=== PATIENT | female | born 1980 | race African-American/Black ===

== ENCOUNTER 2016-10-05 17:51 | Emergency (ER) | payer OTHER ==
[2016-10-05 18:16] VITALS: BP 115/65; PULSE 86; RESP 18; TEMP 96.9
--- NOTE | 2016-10-05 18:41 | ED ---
Lower Extremity Injury HPI - General Chief Complaint: Extremity Injury, Lower Stated Complaint: POSS BROKEN LITTLE TOE ON RT FOOT Time Seen by Provider: 10/05/16 18:20 Source: patient, RN notes reviewed Mode of arrival: wheelchair Limitations: no limitations - History of Present Illness Initial Comments: Patient is a 36-year-old female chief complaint of the injury of her fifth toe on her right foot. Patient reports that she was trying to get into the car and hit her foot on the edge of the cart. Patient reports that she's had swelling and pain over the fifth digit. She denies any peripheral paresthesias or pain with the great toe or other toes. Patient reports that she's having difficulty walking on it.Patient denies any recent fever, chills, shortness of breath, chest pain, back pain, abdominal pain, nausea vomiting, numbness or tingling, dysuria or hematuria, constipation or diarrhea, headaches or visual changes, or any other current symptoms - Related Data Previous Rx's Medication Instructions Recorded Ibuprofen [Motrin] 800 mg PO Q6HR PRN #20 tab 10/05/16 Allergies Allergy/AdvReac Type Severity Reaction Status Date / Time Penicillins Allergy Rash/Hives Verified 10/05/16 18:16 Review of Systems ROS Statement: Those systems with pertinent positive or pertinent negative responses have been documented in the HPI. ROS Other: All systems not noted in ROS Statement are negative. Past Medical History Past Medical History: No Reported History History of Any Multi-Drug Resistant Organisms: None Reported Past Surgical History: Tubal Ligation Additional Past Surgical History / Comment(s): D&C Past Psychological History: No Psychological Hx Reported Smoking Status: Current every day smoker Past Alcohol Use History: Rare Past Drug Use History: None Reported General Exam - General Exam Comments Initial Comments: Pleasant 36-year-old female. No distress. Limitations: no limitations General appearance: alert, in no apparent distress Head exam: Present: atraumatic, normocephalic, normal inspection Eye exam: Present: normal appearance, PERRL, EOMI. Absent: scleral icterus, conjunctival injection, periorbital swelling ENT exam: Present: normal exam, normal oropharynx, mucous membranes moist, TM's normal bilaterally Neck exam: Present: normal inspection. Absent: tenderness, meningismus, lymphadenopathy Respiratory exam: Present: normal lung sounds bilaterally. Absent: respiratory distress, wheezes, rales, rhonchi, stridor Cardiovascular Exam: Present: regular rate GI/Abdominal exam: Present: soft, normal bowel sounds. Absent: distended, tenderness, guarding, rebound, rigid Extremities exam: Present: normal inspection, full ROM, normal capillary refill. Absent: tenderness, pedal edema, joint swelling, calf tenderness Right Foot/Toe exam: Present: normal inspection, full ROM, tenderness (Tenderness and swelling over the fifth toe.), swelling (Mild swelling over the fifth distal middle metatarsal and digit.). Absent: abrasion Neurovascular tendon exam: Present: no vascular compromise Gait: observed and normal Back exam: Present: normal inspection Neurological exam: Present: alert, oriented X3, CN II-XII intact Psychiatric exam: Present: normal affect, normal mood Skin exam: Present: warm, dry, intact, normal color. Absent: rash Course Vital Signs 10/05/16 18:13 Temperature 96.9 F L Pulse Rate 86 Respiratory 18 Rate Blood Pressure 115/65 O2 Sat by Pulse 100 Oximetry Medical Decision Making - Medical Decision Making Patient is 36-year-old [employer] chief complaint of right fifth toe pain after hitting her foot on the car she was entering it. Patient reports that the pain was severe. X-rays are reviewed and show evidence of an acute fracture of the distal fifth phalanx. Patient was alexandrea taped and given a prescription for crutches. I also discussed with the patient follow-up with orthopedic or primary care provider if symptoms continue to persist. I did instruct her to monitor any worsening symptoms and to be reevaluated by her primary care provider. Also instructed her to take Motrin Tylenol for pain as well as ice the foot and keep it elevated. Patient agrees treatment plan will comply. Return parameters were discussed. Disposition Clinical Impression: Fracture of fifth toe, right, closed Disposition: HOME SELF-CARE Condition: Good Instructions: Toe Fracture (ED) Additional Instructions: Patient advised to rest, elevate extremity, and ice the toe is much as possible. use crutches whenever you are ambulating. Follow-up with primary care provider or orthopedic physician of symptoms continue to persist. Prescriptions: Ibuprofen [Motrin] 800 mg PO Q6HR PRN #20 tab PRN Reason: Pain Referrals: Andres Vázquez MD [Primary Care Provider] - 1-2 days Rock Hamilton DO [Doctor of Osteopathic Medicine] - 1-2 days Time of Disposition: 18:49
--- NOTE | 2016-10-05 18:54 | XR ---
EXAMINATION TYPE: XR toes RT DATE OF EXAM: 10/05/2016 6:46 PM COMPARISON: NONE HISTORY: Pain TECHNIQUE: 3 views FINDINGS: There is a nondisplaced fracture midshaft of the proximal phalanx of the little toe. There is no dislocation. IMPRESSION: Nondisplaced little toe fracture.
== END 2016-10-05 19:10 | disposition home or self-care (01) ==
LOC: EC 17:51
DX: S92.531A Displaced fracture of distal phalanx of right lesser toe(s), initial encounter for closed fracture (principal); F17.200 Nicotine dependence, unspecified, uncomplicated; Z88.0 Allergy status to penicillin; W22.8XXA Striking against or struck by other objects, initial encounter
CPT/HCPCS: 99283

== ENCOUNTER 2019-06-05 16:26 | Emergency (ER) | payer OTHER ==
[2019-06-05 17:14] VITALS: BP 149/89; PULSE 107; RESP 20
[2019-06-05] MEDS ORDERED: ACETAMINOPHEN TAB 325 MG TAB PO STA (17:43)
[2019-06-05 18:10] LABS: Basophils % (A) 0 %; Eosinophils # (A) 0.1 k/uL (0-0.7); Eosinophils % (A) 1 %; HCT 35.3 % (34.0-46.0); HGB 11.2 gm/dL (11.4-16.0); Lymphocytes # (A) 0.7 k/uL (1.0-4.8); Lymphocytes % (A) 9 %; MCH 25.7 pg (25.0-35.0); MCHC 31.8 g/dL (31.0-37.0); MCV 80.7 fL (80.0-100.0); Monocytes # (A) 0.4 k/uL (0-1.0); Monocytes % (A) 5 %; Neutrophils # (A) 6.9 k/uL (1.3-7.7); Neutrophils % (A) 83 %; Platelet Count 157 k/uL (150-450); RBC 4.38 m/uL (3.80-5.40); RDW 14.8 % (11.5-15.5); WBC 8.3 k/uL (3.8-10.6)
[2019-06-05 18:23] LABS: ALT 17 U/L (9-52); AST 23 U/L (14-36); African American GFR (CKD) >90 (>60 ml/min/1.73 sqM); Albumin 4.4 g/dL (3.5-5.0); Alkaline Phosphatase 62 U/L (38-126); Anion Gap 10 mmol/L; Blood Urea Nitrogen 11 mg/dL (7-17); Calcium 10.7 mg/dL (8.4-10.2); Carbon Dioxide 22 mmol/L (22-30); Chloride 106 mmol/L (98-107); Glucose 100 mg/dL (74-99); Non-African American GFR(CKD) >90 (>60 ml/min/1.73 sqM); Potassium 3.8 mmol/L (3.5-5.1); Sodium 138 mmol/L (137-145); Total Bilirubin 0.6 mg/dL (0.2-1.3); Total Protein 7.7 g/dL (6.3-8.2)
[2019-06-05 18:27] LABS: Appearance,Urine Clear (Clear); Bacteria,Urine Few /hpf; Bilirubin,Urine Negative (Negative); Blood,Urine Small (Negative); Color,Urine Yellow; Glucose,Urine (UA) Negative (Negative); Ketones,Urine 2+ (Negative); Leukocyte Esterase,Urine Small (Negative); Mucus,Urine Rare /hpf; Nitrite,Urine Positive (Negative); Protein,Urine Trace (Negative); RBC,Urine 13 /hpf (0-5); Specific Gravity,Urine 1.019 (1.001-1.035); Squamous Epithelial Cell,Urine <1 /hpf (0-4); Urobilinogen,Urine <2.0 mg/dL (<2.0); WBC,Urine 21 /hpf (0-5)
--- NOTE | 2019-06-05 18:38 | XR ---
EXAMINATION TYPE: XR chest 2V DATE OF EXAM: 06/05/2019 COMPARISON: Prior chest x-ray July 27, 2014 HISTORY: Cough congestion and fever. TECHNIQUE: Frontal and lateral views of the chest are obtained. FINDINGS: There is no suspicious peripheral focal air space opacity, pleural effusion, or pneumothor ax seen. Central perihilar peribronchial cuffing bilaterally. The cardiac silhouette size is within normal limits. The osseous structures are intact. IMPRESSION: Central bilateral perihilar peribronchial cuffing is consistent with reactive airway dis ease possibly from a viral bronchiolitis. Correlate clinically.
--- NOTE | 2019-06-05 18:48 | XR ---
EXAMINATION TYPE: XR knee 4V LT DATE OF EXAM: 06/05/2019 CLINICAL HISTORY: Left knee pain. TECHNIQUE: Three views of the left knee are obtained. A fourth sunrise view. COMPARISON: None. FINDINGS: There is no acute fracture/dislocation evident in left knee. Mild tricompartment joint spa ce loss with mild patellofemoral compartment spurring. Broad-based bony projection from lateral aspec t patella could reflect osteochondroma seen best on sunrise view. The overlying soft tissue appears u nremarkable. IMPRESSION: As above.
--- NOTE | 2019-06-05 19:08 | ED ---
General Adult HPI - General Chief complaint: Upper Respiratory Infection Stated complaint: flu like symptoms, chills, nausea Time Seen by Provider: 06/05/19 17:32 Source: patient, RN notes reviewed, old records reviewed Mode of arrival: ambulatory Limitations: no limitations - History of Present Illness Initial comments: 38-year-old female patient presents to ED for chief complaint of approximately 1 week of waxing and waning fevers, cough, congestion, body aches, paresthesias in her upper and lower extremities, left knee pain for 3 weeks. Denies any other complaints. Denies any chance that she be . Systemic: Pt denies fatigue, fever/chills, rash. Pt denies weakness, night sweats, weight loss. Neuro: Pt denies headache, visual disturbances, syncope or pre-syncope. HEENT: Pt denies ocular discharge or irritation, otalgia, rhinorrhea, p haryngitis or notable lymphadenopathy. Cardiopulmonary: Pt denies chest pain, SOB, heart palpitations, dyspnea on exertion. Abdominal/GI: Pt denies abdominal pain, n/v/d. : Pt denies dysuria, burning w/ urination, frequency/urgency. Denies new onset urinary or bowel incontinence. MSK: Pt denies myalgia, loss of strength or function in extremities. Neuro: Pt denies new onset weakness. - Related Data Previous Rx's Medication Instructions Recorded Ibuprofen [Motrin] 800 mg PO Q6HR PRN #20 tab 10/05/16 Cephalexin [Keflex] 500 mg PO Q12HR 7 Days #14 cap 06/05/19 Allergies Allergy/AdvReac Type Severity Reaction Status Date / Time Penicillins Allergy Rash/Hives Verified 06/05/19 17:14 cyclobenzaprine AdvReac headache Verified 06/05/19 17:14 [From Flexeril] Review of Systems ROS Statement: Those systems with pertinent positive or pertinent negative responses have been documented in the HPI. ROS Other: All systems not noted in ROS Statement are negative. Past Medical History Past Medical History: No Reported History History of Any Multi-Drug Resistant Organisms: None Reported Past Surgical History: Tubal Ligation Additional Past Surgical History / Comment(s): D&C Past Psychological History: No Psychological Hx Reported Smoking Status: Current every day smoker Past Alcohol Use History: Rare Past Drug Use History: None Reported General Exam - General Exam Comments Initial Comments: Constitutional: NAD, AOX3, Pt has pleasant affect. HEENT: NC/AT, trachea midline, neck supple, no lymphadenopathy. Posterior pharynx non erythematous, without exudates. External ears appear normal, without discharge. Mucous membranes moist. Eyes PERRLA, EOM intact. There is no scleral icterus. No pallor noted. Cardiopulmonary: RRR, no murmurs, rubs or gallops, no JVD noted. Lungs CTAB in anterior and posterior nixon. No peripheral edema. Abdominal exam: Abdomen soft and non-distended. Abdomen non-tender to palpation in all 4 quadrants. Bowel sounds active in LLQ. No hepatosplenomegaly. No ecchymosis Neuro: CN II-XII intact. No nuchal rigidity. No raccon eyes, no pedersen sign, no hemotympanum. No cervical spinal tenderness. MSK: Full active range of motion of knee. No skin changes. Ambulatory. No posterior calf tenderness bilaterally, homans sign negative bilaterally. Posterior tibialis and radial pulse +2 bilaterally. Sensation intact in upper and lower extremities. Full active ROM in upper and lower extremities, 5/5 stregnth. Limitations: no limitations Course Vital Signs 06/05/19 17:11 Temperature 100.8 F H Pulse Rate 107 H Respiratory 20 Rate Blood Pressure 149/89 O2 Sat by Pulse 100 Oximetry Medical Decision Making - Medical Decision Making 38-year-old female patient presents to ED for chief complaint of cough congestion, paresthesias upper or lower extremities, waxing waning fevers and chills. Left knee pain for 3 weeks. Patient reports that she walks around very much at her job and she blew to that is with causing the knee pain. Denies any recent falls or trauma. Physical exam displayed: Full active range of motion of knee. No skin changes. Ambulatory. Neurologic exam within normal limits. Laboratory investigations revealed small amount of blood in urine, UTI, hCG negative, influenza negative. Chest x-ray displayed peribronchial cuffing. X- ray of knee displayed possible osteochondroma. Laboratory investigations are non-impressive. HCG negative. Urinary tract infection noted. EKG nonischemic. Patient will be discharged with Keflex. Will follow up with PCP and orthopedics tomorrow. Will return to ER if condition worsens. Case discussed with Dr. Lawson. - Lab Data Result diagrams: 06/05/19 17:55 06/05/19 17:55 Lab Results 06/05/19 06/05/19 06/05/19 Range/Units 17:55 17:55 17:55 WBC 8.3 (3.8-10.6) k/uL RBC 4.38 (3.80-5.40) m/uL Hgb 11.2 L (11.4-16.0) gm/dL Hct 35.3 (34.0-46.0) % MCV 80.7 (80.0-100.0) fL MCH 25.7 (25.0-35.0) pg MCHC 31.8 (31.0-37.0) g/dL RDW 14.8 (11.5-15.5) % Plt Count 157 (150-450) k/uL Neutrophils % 83 % Lymphocytes % 9 % Monocytes % 5 % Eosinophils % 1 % Basophils % 0 % Neutrophils # 6.9 (1.3-7.7) k/uL Lymphocytes # 0.7 L (1.0-4.8) k/uL Monocytes # 0.4 (0-1.0) k/uL Eosinophils # 0.1 (0-0.7) k/uL Basophils # 0.0 (0-0.2) k/uL Sodium 138 (137-145) mmol/L Potassium 3.8 (3.5-5.1) mmol/L Chloride 106 (98-107) mmol/L Carbon Dioxide 22 (22-30) mmol/L Anion Gap 10 mmol/L BUN 11 (7-17) mg/dL Creatinine 0.77 (0.52-1.04) mg/dL Est GFR (CKD-EPI)AfAm >90 (>60 ml/min/1.73 sqM) Est GFR (CKD-EPI)NonAf >90 (>60 ml/min/1.73 sqM) Glucose 100 H (74-99) mg/dL Calcium 10.7 H (8.4-10.2) mg/dL Total Bilirubin 0.6 (0.2-1.3) mg/dL AST 23 (14-36) U/L ALT 17 (9-52) U/L Alkaline Phosphatase 62 (38-126) U/L Total Protein 7.7 (6.3-8.2) g/dL Albumin 4.4 (3.5-5.0) g/dL Urine Color Urine Appearance (Clear) Urine pH (5.0-8.0) Ur Specific Bells (1.001-1.035) Urine Protein (Negative) Urine Glucose (UA) (Negative) Urine Ketones (Negative) Urine Blood (Negative) Urine Nitrite (Negative) Urine Bilirubin (Negative) Urine Urobilinogen (<2.0) mg/dL Ur Leukocyte Esterase (Negative) Urine RBC (0-5) /hpf Urine WBC (0-5) /hpf Ur Squamous Epith Cells (0-4) /hpf Urine Bacteria (None) /hpf Urine Mucus (None) /hpf Urine HCG, Qual (Not Detectd) Influenza Type A RNA Not Detected (Not Detectd) Influenza Type B (PCR) Not Detected (Not Detectd) 06/05/19 06/05/19 Range/Units 17:55 17:55 WBC (3.8-10.6) k/uL RBC (3.80-5.40) m/uL Hgb (11.4-16.0) gm/dL Hct (34.0-46.0) % MCV (80.0-100.0) fL MCH (25.0-35.0) pg MCHC (31.0-37.0) g/dL RDW (11.5-15.5) % Plt Count (150-450) k/uL Neutrophils % % Lymphocytes % % Monocytes % % Eosinophils % % Basophils % % Neutrophils # (1.3-7.7) k/uL Lymphocytes # (1.0-4.8) k/uL Monocytes # (0-1.0) k/uL Eosinophils # (0-0.7) k/uL Basophils # (0-0.2) k/uL Sodium (137-145) mmol/L Potassium (3.5-5.1) mmol/L Chloride (98-107) mmol/L Carbon Dioxide (22-30) mmol/L Anion Gap mmol/L BUN (7-17) mg/dL Creatinine (0.52-1.04) mg/dL Est GFR (CKD-EPI)AfAm (>60 ml/min/1.73 sqM) Est GFR (CKD-EPI)NonAf (>60 ml/min/1.73 sqM) Glucose (74-99) mg/dL Calcium (8.4-10.2) mg/dL Total Bilirubin (0.2-1.3) mg/dL AST (14-36) U/L ALT (9-52) U/L Alkaline Phosphatase (38-126) U/L Total Protein (6.3-8.2) g/dL Albumin (3.5-5.0) g/dL Urine Color Yellow Urine Appearance Clear (Clear) Urine pH 6.0 (5.0-8.0) Ur Specific Bells 1.019 (1.001-1.035) Urine Protein Trace H (Negative) Urine Glucose (UA) Negative (Negative) Urine Ketones 2+ H (Negative) Urine Blood Small H (Negative) Urine Nitrite Positive H (Negative) Urine Bilirubin Negative (Negative) Urine Urobilinogen <2.0 (<2.0) mg/dL Ur Leukocyte Esterase Small H (Negative) Urine RBC 13 H (0-5) /hpf Urine WBC 21 H (0-5) /hpf Ur Squamous Epith Cells <1 (0-4) /hpf Urine Bacteria Few H (None) /hpf Urine Mucus Rare H (None) /hpf Urine HCG, Qual Not Detected (Not Detectd) Influenza Type A RNA (Not Detectd) Influenza Type B (PCR) (Not Detectd) - EKG Data -: EKG Interpreted by Me (and Dr. Lawson ) EKG Comments: Ventricular rate 103, when necessary for 168, QRS 88, QT/QTC 326/427. Sinus tachycardia, otherwise normal EKG. No concern for acute ischemia. Disposition Clinical Impression: Knee pain, Cough, UTI (urinary tract infection) Disposition: HOME SELF-CARE Condition: Stable Instructions (If sedation given, give patient instructions): Knee Pain (ED), Urinary Tract Infection in Women (ED) Additional Instructions: Take antibiotics as directed. Follow up with primary care provider tomorrow. Follow up with orthopedic consult tomorrow. Return to ER if condition worsens in any way. Prescriptions: Cephalexin [Keflex] 500 mg PO Q12HR 7 Days #14 cap Is patient prescribed a controlled substance at d/c from ED?: No Referrals: None,Stated [Primary Care Provider] - 1-2 days Alcira Duncan, [Doctor of Osteopathic Medicine] - 1-2 days
[2019-06-05] MEDS ORDERED: CEPHALEXIN 500MG STARTER PACK 4 CAP BTL PO STA (19:46)
[2019-06-05 19:59] VITALS: TEMP 101.1
[2019-06-05] MEDS ORDERED: IBUPROFEN 600 MG TAB PO STA (19:59)
== END 2019-06-05 20:00 | disposition home or self-care (01) ==
LOC: EC 16:26
DX: N39.0 Urinary tract infection, site not specified (principal); M25.569 Pain in unspecified knee; R05 Cough; Z32.02 Encounter for pregnancy test, result negative; F17.200 Nicotine dependence, unspecified, uncomplicated; Z88.0 Allergy status to penicillin; Z88.8 Allergy status to other drugs, medicaments and biological substances
CPT/HCPCS: 36415; 71046; 80053; 81001; 81025; 85025; 87502; 93005; 99284

== ENCOUNTER 2022-06-07 05:10 | Emergency (ER) | payer OTHER ==
[2022-06-07 05:18] VITALS: BP 125/78; PULSE 84; RESP 16; TEMP 97.9
[2022-06-07] MEDS ORDERED: IBUPROFEN 800 MG TAB PO STA (05:41)
[2022-06-07] MEDS ORDERED: DEXAMETHASONE SOD PHOSPHATE 10 MG/ML 1 ML VIAL IM STA (05:41)
[2022-06-07] MEDS ORDERED: ACETAMINOPHEN TAB 500 MG TAB PO STA (05:41)
[2022-06-07] MEDS ORDERED: AZITHROMYCIN 500 MG TAB PO STA (05:41)
[2022-06-07] MEDS ORDERED: IPRATROPIUM-ALBUTEROL 3 ML NEB INHALATION STA (05:43)
--- NOTE | 2022-06-07 05:43 | ED ---
URI HPI - General Chief Complaint: ENT Stated Complaint: Sore throat Time Seen by Provider: 06/07/22 05:12 Source: patient, RN notes reviewed, old records reviewed Mode of arrival: ambulatory Limitations: no limitations - History of Present Illness Initial Comments: This is a 41-year-old female to the emergency department for evaluation today. She comes in for cough or congestion. Patient concern for bronchitis. Complaining of sore throat swollen lymph nodes. Overall not feeling well no fevers. Patient is a smoker does admit to getting bronchitis often and this feels the same as her prior episodes MD Complaint: cough, sore throat -: days(s) Severity: moderate Severity scale (1-10): 4 Quality: dull, aching Consistency: constant Improves With: nothing Context: sick contacts Associated Symptoms: myalgias, nasal congestion, sore throat, cough, shortness of breath Treatments Prior to Arrival: none - Related Data Previous Rx's Medication Instructions Recorded Ibuprofen [Motrin] 800 mg PO Q6HR PRN #20 tab 10/05/16 Cephalexin [Keflex] 500 mg PO Q12HR 7 Days #14 cap 06/05/19 Albuterol Sulfate [Proair Hfa] 1 - 2 puff INHALATION Q4H PRN #8.5 06/07/22 gm Azithromycin [Zithromax] 500 mg PO DAILY #5 tab 06/07/22 predniSONE 50 mg PO DAILY #5 tab 06/07/22 Allergies Allergy/AdvReac Type Severity Reaction Status Date / Time Penicillins Allergy Rash/Hives Verified 06/05/19 17:14 cyclobenzaprine AdvReac headache Verified 06/05/19 17:14 [From Flexeril] Review of Systems ROS Statement: Those systems with pertinent positive or pertinent negative responses have been documented in the HPI. ROS Other: All systems not noted in ROS Statement are negative. Past Medical History Past Medical History: Deep Vein Thrombosis (DVT) History of Any Multi-Drug Resistant Organisms: None Reported Past Surgical History: Tubal Ligation Additional Past Surgical History / Comment(s): D&C Past Psychological History: No Psychological Hx Reported Smoking Status: Current every day smoker Past Alcohol Use History: Rare Past Drug Use History: None Reported General Exam Limitations: no limitations General appearance: alert, in no apparent distress Head exam: Present: atraumatic, normocephalic, normal inspection Eye exam: Present: normal appearance, PERRL, EOMI. Absent: scleral icterus, conjunctival injection, periorbital swelling ENT exam: Present: normal exam, mucous membranes moist Neck exam: Present: normal inspection. Absent: tenderness, meningismus, lymphadenopathy Respiratory exam: Present: normal lung sounds bilaterally. Absent: respiratory distress, wheezes, rales, rhonchi, stridor Cardiovascular Exam: Present: regular rate, normal rhythm, normal heart sounds. Absent: systolic murmur, diastolic murmur, rubs, gallop, clicks GI/Abdominal exam: Present: soft, normal bowel sounds. Absent: distended, tenderness, guarding, rebound, rigid Extremities exam: Present: normal inspection, full ROM, normal capillary refill. Absent: tenderness, pedal edema, joint swelling, calf tenderness Back exam: Present: normal inspection Neurological exam: Present: alert, oriented X3, CN II-XII intact Psychiatric exam: Present: normal affect, normal mood Skin exam: Present: warm, dry, intact, normal color. Absent: rash Course Vital Signs 06/07/22 05:14 Temperature 97.9 F Pulse Rate 84 Respiratory 16 Rate Blood Pressure 125/78 O2 Sat by Pulse 98 Oximetry - Reevaluation(s) Reevaluation #1: 06/07/22 06:28 Medical records reviewed Reevaluation #2: 06/07/22 06:28 Patient feels improved here in the ER Reevaluation #3: 06/07/22 06:28 Patient informed results and questions are answered Medical Decision Making - Medical Decision Making 41 female DF for evaluation of cough congestion sore throat of frustrated infection bronchitis. - Radiology Data Radiology results: report reviewed (Chest x-rays negative for acute disease), image reviewed Disposition Clinical Impression: Sore throat, Upper respiratory infection, Bronchitis Disposition: HOME SELF-CARE Condition: Good Instructions (If sedation given, give patient instructions): Pharyngitis (ED), Acute Bronchitis (ED) Prescriptions: predniSONE 50 mg PO DAILY #5 tab Albuterol Sulfate [Proair Hfa] 1 - 2 puff INHALATION Q4H PRN #8.5 gm PRN Reason: Shortness Of Breath Azithromycin [Zithromax] 500 mg PO DAILY #5 tab Is patient prescribed a controlled substance at d/c from ED?: No Referrals: Andres Vázquez MD [Primary Care Provider] - 1-2 days Time of Disposition: 06:45
--- NOTE | 2022-06-07 06:44 | XR ---
EXAMINATION TYPE: XR chest 1V DATE OF EXAM: 06/07/2022 COMPARISON: Chest x-ray June 05, 2019 HISTORY: Sore throat and chest pain. TECHNIQUE: Single frontal view of the chest is obtained. FINDINGS: Improved inspiration current study. There is no suspicious new focal air space opacity, pl eural effusion, or pneumothorax seen. The cardiac silhouette size is stable and within normal limits . Overlying bra strap is present. The osseous structures are intact. IMPRESSION: No acute pulmonary process.
--- NOTE | 2022-06-07 06:45 | XR ---
EXAMINATION TYPE: XR soft tissue neck DATE OF EXAM: 06/07/2022 COMPARISON: CT cervical spine April 20, 2016. HISTORY: Sore throat and pain. TECHNIQUE: 2 view soft tissue neck. FINDINGS: No abnormal prevertebral soft tissue swelling. Region of the epiglottis and vallecula appea rs stable and within normal limits. No suspicious narrowing of the subglottic airway on frontal view. Overlying soft tissue is unremarkable. IMPRESSION: 2 view soft tissue neck within normal limits.
[2022-06-07] MEDS ORDERED: ALBUTEROL HFA INHALER INHALATION ONE (07:00)
== END 2022-06-07 07:45 | disposition home or self-care (01) ==
LOC: EC 05:10
DX: J40 Bronchitis, not specified as acute or chronic (principal); J06.9 Acute upper respiratory infection, unspecified; Z86.718 Personal history of other venous thrombosis and embolism; F17.200 Nicotine dependence, unspecified, uncomplicated; Z88.0 Allergy status to penicillin; Z88.8 Allergy status to other drugs, medicaments and biological substances
CPT/HCPCS: 99283; 96372; 94640; 70360; 71045; J1100